=== PATIENT | male | born 1955 | race Caucasian/White ===

== ENCOUNTER 2017-04-22 12:46 | Emergency (ER) | payer OTHER ==
[~2017-04-22] VITALS: Ht 177.8 cm; Wt 65.7 kg
[2017-04-22 12:54] VITALS: BP 165/77; PULSE 113; RESP 20; TEMP 97.8; O2SAT 100
[2017-04-22 13:44] LABS: AUTOMATED NEUTROPHIL # 4.6 TH/MM3 (1.8-7.7); BASOPHIL % 0.5 % (0.0-2.0); EOSINOPHIL % 0.1 % (0.0-4.0); HEMATOCRIT 46.2 % (39.0-51.0); HEMO FLAGS DIFF FINAL; LYMPH % 18.2 % (9.0-44.0); LYMPHOCYTE # 1.2 TH/MM3 (1.0-4.8); MEAN CELL VOLUME 91.4 FL (80.0-100.0); MEAN CORPUSCULAR HEMOGLOBIN 30.3 PG (27.0-34.0); MEAN CORPUSCULAR HGB CONC 33.2 % (32.0-36.0); MONO % 7.1 % (0.0-8.0); NEUT % 74.1 % (16.0-70.0); PLATELET COUNT 381 TH/MM3 (150-450); RED BLOOD COUNT 5.05 MIL/MM3 (4.50-5.90); RED CELL DISTRIBUTION WIDTH 13.8 % (11.6-17.2); WHITE BLOOD COUNT 6.4 TH/MM3 (4.0-11.0)
[2017-04-22 13:48] LABS: POTASSIUM 3.7 MEQ/L (3.5-5.1)
[2017-04-22 13:50] LABS: BICARBONATE 19.5 MEQ/L (21.0-32.0)
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
[2017-04-22] MEDS ORDERED: MORPHINE SULFATE 8 MG/ML INJ IV PUSH ONE (14:00)
[2017-04-22] MEDS ORDERED: SODIUM CHLOR 0.9% 1000 ML INJ 1,000 ML IV ONE (14:00)
[2017-04-22 14:02] VITALS: BP 160/71; PULSE 106; RESP 16; O2SAT 100
--- NOTE | 2017-04-22 14:26 | RADRPT ---
EXAM DATE/TIME: 04/22/2017 13:31 [facility] COMPARISON: No previous studies available for comparison. INDICATIONS : Left flank pain. Evaluate for renal calculi. ORAL CONTRAST: No oral contrast ingested. RADIATION DOSE: 9.16 CTDIvol (mGy) MEDICAL HISTORY : None SURGICAL HISTORY : None. ENCOUNTER: Initial ACUITY: 2 days PAIN SCALE: 5/10 LOCATION: Left flank TECHNIQUE: Volumetric scanning of the abdomen and pelvis was performed. Using automated exposure control and ad justment of the mA and/or kV according to patient size, radiation dose was kept as low as reasonably achievable to obtain optimal diagnostic quality images. DICOM format image data is available electro nically for review and comparison. FINDINGS: LOWER LUNGS: The visualized lower lungs are clear. LIVER: Liver density is normal. There are 4 low density lesions ranging in size from 9 mm up to 2.1 cm. All of these lesions have density measurements characteristic of cysts. There is no dilation of the bili ronaldo tree. No calcified gallstones. SPLEEN: Normal size without lesion. There are multiple calcified granulomas within the spleen. PANCREAS: Within normal limits. KIDNEYS: Normal in size and shape. There is no mass, stone, or hydronephrosis. ADRENAL GLANDS: Within normal limits. VASCULAR: There is no aortic aneurysm. There is moderate atherosclerotic disease. BOWEL/MESENTERY: The stomach, small bowel, and colon demonstrate no acute abnormality. There is no free intraperitone al air or fluid. ABDOMINAL WALL: There is an ovoid subcutaneous low density lesion in the left gluteal region measuring 3.1 cm. RETROPERITONEUM: There is no lymphadenopathy. BLADDER: No wall thickening or mass. REPRODUCTIVE: Within normal limits. INGUINAL: There is no lymphadenopathy or hernia. MUSCULOSKELETAL: There are degenerative changes of the lumbar spine. CONCLUSION: 1. No renal stones are present and there are no findings to indicate urinary obstruction. 2. There is a 3.1 cm left gluteal region sebaceous cyst. 3. Nonacute findings include 4 hepatic cysts and moderate atherosclerotic disease. Mitchell Cornejo MD on April 22, 2017 at 14:19 Board Certified Radiologist. This report was verified electronically.
[2017-04-22 14:43] LABS: BLOOD, URINE SMALL (NEG); GLUCOSE,URINE NEG (NEG); NITRITE,URINE NEG (NEG)
[2017-04-22 14:49] LABS: KETONE, URINE 80 OR GREATER mg/dL (NEG); METHOD OF COLLECTION CLEAN CATCH; URINE COLOR YELLOW (YELLW/STRAW)
[2017-04-22 14:50] LABS: COMMENT (UR) CULT NOT INDICATED; CULTURE IF INDICATED CULT NOT INDICATED; RBC, URINE 0-3 /hpf (0-3); WBC, URINE 0-2 /hpf (0-5)
[2017-04-22] MEDS ORDERED: GADOBENATE DIM PF 529 MG/ML 10ML VIAL (for RAD MRI) IV ONE (16:40)
[2017-04-22 16:54] VITALS: BP 135/83; PULSE 98; RESP 16; O2SAT 99
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
[2017-04-22] MEDS ORDERED: MORPHINE SULFATE 4 MG/ML INJ IV PUSH ONE (17:45)
[2017-04-22] MEDS ORDERED: TYLE325T PO (18:12)
[2017-04-22 18:17] VITALS: BP 155/91
== END 2017-04-22 18:32 | disposition home or self-care (01) ==
LOC: PHED 12:46
DX: M54.5 Low back pain (principal); F17.210 Nicotine dependence, cigarettes, uncomplicated
CPT/HCPCS: 72158; 74176; 80048; 81001; 85025; 96361; 96374; 96376; 99285; A9577; J2270; J7030

== ENCOUNTER 2018-07-01 03:53 | Observation (INO) ==
[2018-07-01 03:59] VITALS: RESP 18
[2018-07-01] MEDS ORDERED: Sod Chloride 0.9% Inj 1,000 ML IV.SIG ONE (04:33)
[2018-07-01] MEDS ORDERED: Dicyclomine Inj 20 MG/2 ML Ampul IM ONE (04:33)
--- NOTE | 2018-07-01 04:33 | ED ---
HPI General Chief complaint: Nausea/Vomiting/Diarrhea Stated complaint: vomiting palpatations Time Seen by Provider: 07/01/18 04:28 Source: patient Mode of arrival: ambulatory Limitations: no limitations History of Present Illness HPI narrative: Patient presents with history of nausea vomiting and abdominal pain of onset at midnight. Patient has had dry heaves with abdominal pain associated with this. No change in bowel habits. Generally good health with history of hypertension. No significant symptoms other than the above. Related Data Previous Rx's Medication Instructions Recorded amlodipine [Norvasc] 5 mg PO DAILY #30 tab 07/01/18 Allergies Allergy/AdvReac Type Severity Reaction Status Date / Time No Known Allergies Allergy Unverified 07/01/18 04:06 Review of Systems ROS: all other systems reviewed are negative [facility] Medical History Medical History Patient denies medical problems (Acute) Surgical History Surgical History No history of previous surgery (Acute) Family History Family History Father History of chronic obstructive pulmonary disease Mother History of chronic obstructive pulmonary disease Social History Social History Substance History: No History of Abuse Second Hand Smoke Exposure: No Smoking Status: Current every day smoker Tobacco Type: Cigarettes How Often Do You Have a Drink Containing Alcohol: 4 or more times a week Recent Travel in [facility] within the Last 8 Weeks: No Recent Out of Country Travel within the Last 8 Weeks: No Immunization History Tetanus Immunization: Unsure Exam Narrative Exam Narrative: GENERAL: Alert and oriented with abdominal discomfort SKIN: Focused skin assessment warm/dry. HEAD: Atraumatic. Normocephalic. EYES: Pupils equal and round. No scleral icterus. No injection or drainage. ENT: No nasal bleeding or discharge. Mucous membranes pink and moist. NECK: Trachea midline. No JVD. CARDIOVASCULAR: Regular rate and rhythm. No murmur appreciated. RESPIRATORY: No accessory muscle use. Clear to auscultation. Breath sounds equal bilaterally. GASTROINTESTINAL: General abdominal tenderness with some guarding and no rigidity. Nondistended. Hepatic and splenic margins not palpable. MUSCULOSKELETAL: No obvious deformities. No clubbing. No cyanosis. No edema. Course Reevaluation(s) Reevaluation #1: Reevaluation shows patient to have generalized abdominal tenderness with good bowel sounds however increased tenderness to right lower quadrant. Tympanitic to percussion. No rebound. Lactic x2 shows no abnormality. Patient probably abdominal tenderness secondary to profuse retching prior to arrival with elevated white count. Time: 07:22 Reevaluation #2: Generally reduced tenderness to the abdomen. Patient stable for discharge. Will return if pain recurs or symptoms increase. Time: 07:41 Initial Documented Vital Signs Temperature 97.6 F 07/01/18 03:55 Pulse Rate 103 H 07/01/18 03:55 Respiratory Rate 18 07/01/18 03:55 Blood Pressure 204/91 H 07/01/18 03:55 Pulse Oximetry 96 07/01/18 03:55 Last Documented Vital Signs Temperature 97.7 F 07/01/18 15:16 Pulse Rate 76 07/01/18 15:16 Respiratory Rate 18 07/01/18 15:16 Blood Pressure 141/73 H 07/01/18 15:16 Pulse Oximetry 97 07/01/18 15:16 Critical Care Time Critical Care Time: No Medical Decision Making MDM Narrative Medical decision making narrative: Patient unable to sleep due to nausea vomiting and retching since midnight. Patient had increasing tenderness but patient still has diffuse generalized tenderness with poor localization. Patient has guarding but no rebound to palpation. Case discussed with general surgery who suggested that we need angiography. Patient admitted to Dr. Soler for further 24 hours. Medical Screen Exam Complete: Yes Emergency Medical Condition: Yes Lab Data Result diagrams: 07/01/18 13:50 07/01/18 13:50 Lab Results 07/01/18 07/01/18 07/01/18 Range/Units 04:35 04:35 04:35 CBC w Diff Auto diff final WBC 14.9 H (4.0-11.0) th/mm3 RBC 4.39 L (4.50-5.90) mil/mm3 Hgb 13.4 (13.0-17.0) gm/dL Hct 40.1 (39.0-51.0) % MCV 91.3 (80.0-100.0) fL MCH 30.6 (27.0-34.0) pg MCHC 33.5 (32.0-36.0) % RDW 14.0 (11.6-17.2) % Plt Count 374 (150-450) th/mm3 MPV 8.4 (7.0-11.0) fL Neut % (Auto) 89.6 H (16.0-70.0) % Lymph % (Auto) 5.4 L (9.0-44.0) % [place] % (Auto) 4.0 (0.0-8.0) % Eos % (Auto) 0.6 (0.0-4.0) % Baso % (Auto) 0.4 (0.0-2.0) % Neut # (Auto) 13.3 H (1.8-7.7) th/mm3 Lymph # (Auto) 0.8 L (1.0-4.8) th/mm3 [place] # (Auto) 0.6 (0.0-0.9) th/mm3 Eos # (Auto) 0.1 (0.0-0.4) th/mm3 Baso # (Auto) 0.1 (0.0-0.2) th/mm3 WBC Differential . Differential Comment . Sodium 139 (136-145) meq/L Potassium 3.9 (3.5-5.1) meq/L Chloride 101 (98-107) meq/L Carbon Dioxide 27.4 (21.0-32.0) meq/L Anion Gap 11 (5-15) meq/L BUN 31 H (7-18) mg/dL Creatinine 1.90 H (0.60-1.30) mg/dL Estimated GFR 36 L (>89) mL/min Random Glucose 102 (74-106) mg/dL Lactic Acid 1.0 (0.4-2.0) mmol/L Calcium 9.5 (8.5-10.1) mg/dL Total Bilirubin 0.2 (0.2-1.0) mg/dL AST 23 (15-37) U/L ALT 22 (12-78) U/L Alkaline Phosphatase 125 H (45-117) U/L Total Creatine Kinase (39-308) U/L Troponin I (0.02-0.05) ng/mL Total Protein 8.4 H (6.4-8.2) g/dL Albumin 4.5 (3.4-5.0) g/dL Lipase 86 (73-393) U/L Urine Color (Yellw/Straw) Urine Clarity (Clear) Urine pH (5.0-8.5) Ur Specific [place] (1.002-1.035) Urine Protein (Neg-Trace) mg/dL Urine Glucose (UA) (Negative) mg/dL Urine Ketones (Negative) mg/dL Urine Occult Blood (Negative) Urine Nitrate (Negative) Urine Bilirubin (Negative) Urine Urobilinogen (Less than 2) mg/dL Ur Leukocyte Esterase (Negative) Urine RBC (0-3) /hpf Urine WBC (0-5) /hpf Micro UA Comment Ur Microscopic Review Urine Culture Comments 07/01/18 07/01/18 07/01/18 Range/Units 06:15 06:25 08:35 CBC w Diff WBC (4.0-11.0) th/mm3 RBC (4.50-5.90) mil/mm3 Hgb (13.0-17.0) gm/dL Hct (39.0-51.0) % MCV (80.0-100.0) fL MCH (27.0-34.0) pg MCHC (32.0-36.0) % RDW (11.6-17.2) % Plt Count (150-450) th/mm3 MPV (7.0-11.0) fL Neut % (Auto) (16.0-70.0) % Lymph % (Auto) (9.0-44.0) % [place] % (Auto) (0.0-8.0) % Eos % (Auto) (0.0-4.0) % Baso % (Auto) (0.0-2.0) % Neut # (Auto) (1.8-7.7) th/mm3 Lymph # (Auto) (1.0-4.8) th/mm3 [place] # (Auto) (0.0-0.9) th/mm3 Eos # (Auto) (0.0-0.4) th/mm3 Baso # (Auto) (0.0-0.2) th/mm3 WBC Differential Differential Comment Sodium (136-145) meq/L Potassium (3.5-5.1) meq/L Chloride (98-107) meq/L Carbon Dioxide (21.0-32.0) meq/L Anion Gap (5-15) meq/L BUN (7-18) mg/dL Creatinine (0.60-1.30) mg/dL Estimated GFR (>89) mL/min Random Glucose (74-106) mg/dL Lactic Acid 0.7 (0.4-2.0) mmol/L Calcium (8.5-10.1) mg/dL Total Bilirubin (0.2-1.0) mg/dL AST (15-37) U/L ALT (12-78) U/L Alkaline Phosphatase (45-117) U/L Total Creatine Kinase 198 (39-308) U/L Troponin I Less than 0.02 L (0.02-0.05) ng/mL Total Protein (6.4-8.2) g/dL Albumin (3.4-5.0) g/dL Lipase (73-393) U/L Urine Color Yellow (Yellw/Straw) Urine Clarity Clear (Clear) Urine pH 6.0 (5.0-8.5) Ur Specific [place] 1.025 (1.002-1.035) Urine Protein Trace (Neg-Trace) mg/dL Urine Glucose (UA) 100 H (Negative) mg/dL Urine Ketones Trace H (Negative) mg/dL Urine Occult Blood Trace (Negative) Urine Nitrate Negative (Negative) Urine Bilirubin Negative (Negative) Urine Urobilinogen 0.2 (Less than 2) mg/dL Ur Leukocyte Esterase Negative (Negative) Urine RBC 0-3 (0-3) /hpf Urine WBC 0-5 (0-5) /hpf Micro UA Comment Culture not ind Ur Microscopic Review Microscopic reviewed Urine Culture Comments Culture not ind 07/01/18 07/01/18 07/01/18 Range/Units 13:50 13:50 13:50 CBC w Diff Auto diff final WBC 9.2 (4.0-11.0) th/mm3 RBC 3.98 L (4.50-5.90) mil/mm3 Hgb 12.1 L (13.0-17.0) gm/dL Hct 36.3 L (39.0-51.0) % MCV 91.0 (80.0-100.0) fL MCH 30.3 (27.0-34.0) pg MCHC 33.3 (32.0-36.0) % RDW 13.6 (11.6-17.2) % Plt Count 273 (150-450) th/mm3 MPV 8.8 (7.0-11.0) fL Neut % (Auto) 87.3 H (16.0-70.0) % Lymph % (Auto) 7.3 L (9.0-44.0) % [place] % (Auto) 4.0 (0.0-8.0) % Eos % (Auto) 0.1 (0.0-4.0) % Baso % (Auto) 1.3 (0.0-2.0) % Neut # (Auto) 8.0 H (1.8-7.7) th/mm3 Lymph # (Auto) 0.7 L (1.0-4.8) th/mm3 [place] # (Auto) 0.4 (0.0-0.9) th/mm3 Eos # (Auto) 0.0 (0.0-0.4) th/mm3 Baso # (Auto) 0.1 (0.0-0.2) th/mm3 WBC Differential . Differential Comment . Sodium 137 (136-145) meq/L Potassium 4.4 (3.5-5.1) meq/L Chloride 103 (98-107) meq/L Carbon Dioxide 23.1 (21.0-32.0) meq/L Anion Gap 11 (5-15) meq/L BUN 27 H (7-18) mg/dL Creatinine 1.60 H (0.60-1.30) mg/dL Estimated GFR 44 L (>89) mL/min Random Glucose 114 H (74-106) mg/dL Lactic Acid (0.4-2.0) mmol/L Calcium 8.6 D (8.5-10.1) mg/dL Total Bilirubin (0.2-1.0) mg/dL AST (15-37) U/L ALT (12-78) U/L Alkaline Phosphatase (45-117) U/L Total Creatine Kinase 289 (39-308) U/L Troponin I Less than 0.02 L (0.02-0.05) ng/mL Total Protein (6.4-8.2) g/dL Albumin (3.4-5.0) g/dL Lipase (73-393) U/L Urine Color (Yellw/Straw) Urine Clarity (Clear) Urine pH (5.0-8.5) Ur Specific [place] (1.002-1.035) Urine Protein (Neg-Trace) mg/dL Urine Glucose (UA) (Negative) mg/dL Urine Ketones (Negative) mg/dL Urine Occult Blood (Negative) Urine Nitrate (Negative) Urine Bilirubin (Negative) Urine Urobilinogen (Less than 2) mg/dL Ur Leukocyte Esterase (Negative) Urine RBC (0-3) /hpf Urine WBC (0-5) /hpf Micro UA Comment Ur Microscopic Review Urine Culture Comments Imaging Data Radiologist's impression: Abdomen/Pelvis CT 07/01/18 04:33 CONCLUSION: 1. No acute finding is identified within the abdomen or pelvis on this noncontrast examination. 2. Stable chronic findings including moderate to severe atherosclerotic disease and left gluteal subcutaneous cystic lesion. Discharge Plan Discharge Disposition Patient Disposition: 30 Still Patient Discharge Condition Condition: Stable Discharge Order Discharge Orders: Discharge Order (Routine); Ordered 07/01/18 Ordered By: Eber Viramontes Discharge Details Anticipated Discharge Date: 07/01/18 Diagnosis: Abdominal pain Physicians Team ED Provider: Ralph Ramos Primary Care Provider: Primary Care Genesis Sanford Attending Provider: Rogers Moraes Status ED Status: Left Department Discharge Information Discharge Date/Time: 07/01/18 09:42
[2018-07-01 04:52] LABS: Baso # (Auto) 0.1 th/mm3 (0.0-0.2); Baso % (Auto) 0.4 % (0.0-2.0); Eos # (Auto) 0.1 th/mm3 (0.0-0.4); Eos % (Auto) 0.6 % (0.0-4.0); Hematocrit 40.1 % (39.0-51.0); Hemoglobin 13.4 gm/dL (13.0-17.0); Lymph # (Auto) 0.8 th/mm3 (1.0-4.8); Lymph % (Auto) 5.4 % (9.0-44.0); Mean Corpuscular HGB Conc 33.5 % (32.0-36.0); Mean Corpuscular Hemoglobin 30.6 pg (27.0-34.0); Mean Corpuscular Volume 91.3 fL (80.0-100.0); Mean Platelet Volume 8.4 fL (7.0-11.0); Mono # (Auto) 0.6 th/mm3 (0.0-0.9); Neut # (Auto) 13.3 th/mm3 (1.8-7.7); Neut % (Auto) 89.6 % (16.0-70.0); Platelet Count 374 th/mm3 (150-450); Red Blood Count 4.39 mil/mm3 (4.50-5.90); White Blood Count 14.9 th/mm3 (4.0-11.0)
[2018-07-01 05:02] LABS: Chloride 101 meq/L (98-107); Potassium 3.9 meq/L (3.5-5.1); Sodium 139 meq/L (136-145)
[2018-07-01 05:05] LABS: Glucose,Random 102 mg/dL (74-106)
[2018-07-01 05:06] LABS: Albumin 4.5 g/dL (3.4-5.0); Anion Gap 11 meq/L (5-15); Blood Urea Nitrogen 31 mg/dL (7-18); Calcium 9.5 mg/dL (8.5-10.1); Carbon Dioxide 27.4 meq/L (21.0-32.0); Lipase 86 U/L (73-393)
--- NOTE | 2018-07-01 05:07 | CT ---
EXAM DATE: 07/01/2018 4:51 AM EDT AGE/SEX: 62 years / Male INDICATIONS: Nausea. Vomiting. CLINICAL DATA: This is the patient's initial encounter. Patient reports that signs and symptoms have been present for 1 day and indicates a pain score of 0/10. MEDICAL/SURGICAL HISTORY: None. None. RADIATION DOSE: 7.87 CTDI (mGy) COMPARISON: [facility], CT ABDOMEN & PELVIS W/O CONTRAST, 04/22/2017. . TECHNIQUE: Multiple contiguous axial images were obtained through the abdomen. Images were obtained using multiple row detector helical technique. Using automated exposure control and adjustment of the mA and/or kV according to patient size, radiation dose was kept as low as reasonably achievable to o btain optimal diagnostic quality images. DICOM format image data is available electronically for rev iew and comparison. FINDINGS: Lower chest: No acute abnormality is identified. Hepatobiliary: No concerning focal liver lesion is identified. There are 4 low-density lesions in the liver measuring up to 1.5 cm. These are stable and have features characteristic of cysts. No calcifi ed gallstones are present. Kidneys: No hydronephrosis, stone, or mass. Adrenal Glands: Within normal limits. Spleen: Within normal limits. There are multiple punctate calcifications. Pancreas: Within normal limits. Vascular: The aorta is nonaneurysmal. There is moderate to severe atherosclerotic disease. Bowel/Mesentery: A small hiatal hernia is present. The small bowel demonstrates no significant abnorm ality. No colon abnormality is identified. There are no findings to indicate bowel obstruction. No fr ee air or free fluid is visualized. Abdominal Wall: No hernia is visualized. Retroperitoneum: No lymphadenopathy. Bladder: No wall thickening or mass. Reproductive: Within normal limits. Inguinal: No lymphadenopathy or hernia. Musculoskeletal: No acute osseous abnormality is identified. There is thoracolumbar scoliosis with mu ltilevel degenerative disc disease. Stable subcutaneous cystic lesion in the left gluteal region elaine uring up to 3.2 cm. CONCLUSION: 1. No acute finding is identified within the abdomen or pelvis on this noncontrast examination. 2. Stable chronic findings including moderate to severe atherosclerotic disease and left gluteal sub cutaneous cystic lesion. Electronically signed by: Mitchell Cornejo MD 07/01/2018 5:05 AM EDT
[2018-07-01 05:09] LABS: Alanine Aminotransferase 22 U/L (12-78); Aspartate Aminotransferase 23 U/L (15-37); Glomerular Filtration Rate 36 mL/min (>89)
[2018-07-01 05:11] LABS: Total Protein 8.4 g/dL (6.4-8.2)
[2018-07-01 05:12] LABS: Alkaline Phosphatase 125 U/L (45-117)
[2018-07-01 06:31] LABS: Bilirubin,Urine Negative (Negative); Clarity,Urine Clear (Clear); Color,Urine Yellow (Yellw/Straw); Glucose,Urine (UA) 100 mg/dL (Negative); Leukocyte Esterase,Urine Negative (Negative); Nitrite,Urine Negative (Negative); Specific Gravity,Urine 1.025 (1.002-1.035); Urobilinogen,Urine 0.2 mg/dL (Less than 2)
[2018-07-01 06:37] LABS: RBC,Urine 0-3 /hpf (0-3); WBC,Urine 0-5 /hpf (0-5)
[2018-07-01] MEDS ORDERED: Diatrizoate Meglum/Diatrizoate Sod Liq 9 ML UDC PO ONE (07:26)
[2018-07-01] MEDS ORDERED: Sod Chloride 0.9% Inj 1,000 ML IV.CONT SCH (08:15)
[2018-07-01] MEDS ORDERED: Bisacodyl 10 MG Supp RECTAL PRN (08:15)
[2018-07-01] MEDS ORDERED: Temazepam 15 MG Capsule PO PRN (08:15)
[2018-07-01] MEDS ORDERED: Acetaminophen 325 MG Tablet PO PRN (08:15)
[2018-07-01] MEDS ORDERED: Sod Chloride 0.9% Inj 1,000 ML IV.SIG SCH (08:15)
[2018-07-01 09:00] LABS: Creatine Kinase 198 U/L (39-308)
[2018-07-01] MEDS ORDERED: Senna/Docusate Sodium 8.6/50 MG Tablet PO SCH (09:00)
[2018-07-01 14:17] LABS: Baso # (Auto) 0.1 th/mm3 (0.0-0.2); Baso % (Auto) 1.3 % (0.0-2.0); Eos % (Auto) 0.1 % (0.0-4.0); Hematocrit 36.3 % (39.0-51.0); Hemoglobin 12.1 gm/dL (13.0-17.0); Lymph # (Auto) 0.7 th/mm3 (1.0-4.8); Lymph % (Auto) 7.3 % (9.0-44.0); Mean Corpuscular HGB Conc 33.3 % (32.0-36.0); Mean Corpuscular Hemoglobin 30.3 pg (27.0-34.0); Mean Platelet Volume 8.8 fL (7.0-11.0); Mono # (Auto) 0.4 th/mm3 (0.0-0.9); Neut % (Auto) 87.3 % (16.0-70.0); Platelet Count 273 th/mm3 (150-450); Red Blood Count 3.98 mil/mm3 (4.50-5.90); Red Cell Distribution Width 13.6 % (11.6-17.2); White Blood Count 9.2 th/mm3 (4.0-11.0)
[2018-07-01 14:24] LABS: Potassium 4.4 meq/L (3.5-5.1)
[2018-07-01 14:35] LABS: Creatine Kinase 289 U/L (39-308)
[2018-07-01 14:39] LABS: Calcium 8.6 mg/dL (8.5-10.1); Carbon Dioxide 23.1 meq/L (21.0-32.0)
[2018-07-01 15:17] VITALS: BP 141/73; PULSE 76; TEMP 97.7; O2SAT 97
--- NOTE | 2018-07-01 15:20 | ECG ---
Date Performed: 07/01/2018 Time Performed: 13:57:51 PTAGE: 62 years EKG: Sinus rhythm NORMAL ECG NO PREVIOUS TRACING DOCTOR: Eulogio Hurd Interpretating Date/Time 07/01/2018 15:19:50
--- NOTE | 2018-07-01 15:29 | P.HP ---
History of Present Illness Primary Care Physician: No Primary Care Physician Chief Complaint: Nausea, vomiting, elevated blood pressure History of Present Illness: 62-year-old male with no chronic medical illnesses who presented to the hospital because of elevated blood pressure. Patient states that he is in normal state of health until last evening when he was cooking dinner. Patient states that he did not eat anything throughout the whole day and he started making dinner and got nauseous, dizziness and had an episode of vomiting. Patient denies any ingestion of any mayonnaise product, food product, meat, seafood. He states that after he vomited he felt really dizzy so he took a blood pressure was 220/110. Because of that reason he came to emergency department for evaluation. Upon presentation emergency department he had a blood pressure 204/91. His blood pressure had continued to improve throughout his stay in the hospital. Patient had complete workup in the emergency department to find to have some hemoconcentration, dehydration, CT of the abdomen did not indicate any abnormality. Lactic acid level is normal. It was recommended by her physician that the patient be observed in the hospital for further evaluation and management. Upon evaluating the patient he is resting comfortably in bed and wants to go home. He was deferring any further evaluations to include MRA of the abdomen. Patient states that he felt much better. He is hungry and wants to eat. Patient denies any previous history of hypertension, denies any chest pain, shortness of breath, dyspnea, diaphoresis. Patient denies any presenting abdominal pain, hematemesis, constipation, diarrhea, hematochezia, melena. Review of Systems All other systems reviewed negative except as stated in HPI Gastrointestinal: Reports nausea, Reports vomiting Neurologic: Reports dizziness PMFSH - History History Provided By: Patient - Medical History Medical History: Medical History (Last Reviewed 07/01/18 @ 04:30 by Ralph Ramos MD) Patient denies medical problems - Surgical History Surgical History: Surgical History (Last Reviewed 07/01/18 @ 04:30 by Ralph Ramos MD) No history of previous surgery - Family History Family History: Family History (Last Updated 07/01/18 @ 13:22 by REJI Mcconnell) Father History of chronic obstructive pulmonary disease Mother History of chronic obstructive pulmonary disease - Tobacco History Second Hand Smoke Exposure: No Tobacco Use In Past 30 Days: Yes Smoking Status: Current every day smoker Tobacco Type: Cigarettes - Alcohol History How Often Do You Have a Drink Containing Alcohol: 4 or more times a week - Substance Use History Substance History: No History of Abuse - Travel History Recent Travel in the [place] Within the Last 8 Weeks: No Recent Travel Out of the Country Within the Last 8 Weeks: No - Immunization History Tetanus Immunization: Unsure Medications and Allergies Active Medications: Active Medications Acetaminophen (Tylenol) 650 mg PO Q4H PRN PRN Reason: Temp > 100.4 Al Hydroxide/Mg Hydroxide (Milk Of Magnesia Liq) 30 ml PO Q12H PRN PRN Reason: Mild Constipation Bisacodyl (Dulcolax Supp) 10 mg RECTAL DAILY PRN PRN Reason: SEVERE CONSITIPATION Clonidine HCl (Catapres) 0.1 mg PO Q6H PRN PRN Reason: SBP>200, DBP>100 Enalaprilat (Vasotec Inj) 1.25 mg IV.PUSH Q6H PRN PRN Reason: SBP>180, DBP>100, HR>65 Sodium Chloride (Ns Inj) 1,000 mls @ 0 mls/hr IV.SIG BOLUS [facility] Last Infusion: 07/01/18 10:03 Dose: Infused Sodium Chloride (Ns Inj) 1,000 mls @ 100 mls/hr IV.CONT .Q10H [facility] Last Admin: 07/01/18 09:08 Dose: 100 mls/hr Lactulose (Lactulose Liq) 30 ml PO DAILY PRN PRN Reason: SEVERE CONSITIPATION Ondansetron HCl (Zofran Inj) 4 mg IV.PUSH Q6H PRN PRN Reason: NAUSEA OR VOMITING Senna/Docusate Sodium (Ericka-Colace) 1 tab PO BID [facility] Last Admin: 07/01/18 10:03 Dose: Not Given Sennosides (Senokot) 17.2 mg PO Q12H PRN PRN Reason: Moderate Constipation Sodium Chloride (Ns Flush) 2 ml IV.FLUSH PRN PRN PRN Reason: FLUSH AFTER USING IV ACCESS Sodium Chloride (Ns Flush) 2 ml IV.FLUSH PRN PRN PRN Reason: FLUSH AFTER USING IV ACCESS Temazepam (Restoril) 15 mg PO HS PRN PRN Reason: INSOMNIA Allergies Allergy/AdvReac Type Severity Reaction Status Date / Time No Known Allergies Allergy Unverified 07/01/18 04:06 Exam Vital signs: Vital Signs 07/01/18 03:55 07/01/18 05:17 07/01/18 06:33 Temperature 97.6 F Pulse Rate 103 H 96 H 101 H Respiratory Rate 18 18 18 Blood Pressure 204/91 H 171/84 H 179/88 H Pulse Oximetry 96 97 97 07/01/18 07:14 07/01/18 09:00 07/01/18 10:11 Temperature 98.2 F 99.5 F Pulse Rate 101 H 97 H 65 Respiratory Rate 18 18 Blood Pressure 158/95 H 154/84 H 159/80 H Pulse Oximetry 97 98 07/01/18 12:00 07/01/18 15:16 Temperature 98.9 F 97.7 F Pulse Rate 77 76 Respiratory Rate 18 18 Blood Pressure 142/77 H 141/73 H Pulse Oximetry 95 97 Intake & Output 06/30/18 07/01/18 07/01/18 18:59 06:59 18:59 Intake Total 1000 / 1000 1000 / 1000 Balance 1000 / 1000 1000 / 1000 Weight 62.3 kg 63.5 kg Intake: IV 1000 / 1000 1000 / 1000 NS Inj 1,000 ML @ Wide Open IV. 1000 / 1000 1000 / 1000 SIG BOLUS THONY Rx#:[id number] Other: Weight On Admission 63.5 kg Narrative: GENERAL: Well-developed, well-nourished, in no acute distress. alert and orientated HEENT: Head is normocephalic without any lesions or masses noted. Facial features are symmetric. Eyes: Pupils equal round reactive to light. Extraocular muscles are intact. Conjunctivae were clear. Oropharyngeal: Pharynx without any erythema edema. Tongue is midline without deviation. Buccal mucosa is moist without any masses or lesions NECK: Supple without any masses. Trachea midline no deviation. No JVD, no bruits are appreciated CARDIAC: Regular rhythm, regular rate. S1/S2 are heard. No murmurs gallops or rubs. LUNGS: Clear to auscultation bilaterally. No wheeze, rhonchi or rales. No use of accessory muscles on inspiration or expiration. ABDOMEN: Soft, nontender. Nondistended. Bowel sounds heard in all 4 quadrants. No organomegaly or masses. Negative rebound, negative guarding EXTREMITIES: No edema, pulses are equal bilaterally. No cyanosis or clubbing NEUROLOGY: Mood and affect appear appropriate. Cranial nerves II through XII grossly intact. Muscle strength 5/5 in upper and lower extremities bilaterally. Deep tendon reflexes are 2+ in upper and lower extremities bilaterally. Results - Labs CBC & Chem 7: 07/01/18 13:50 07/01/18 13:50 Labs: Laboratory Results - last 24 hr 07/01/18 07/01/18 07/01/18 04:35 04:35 04:35 CBC w Diff Auto diff final WBC 14.9 H RBC 4.39 L Hgb 13.4 Hct 40.1 MCV 91.3 MCH 30.6 MCHC 33.5 RDW 14.0 Plt Count 374 MPV 8.4 Neut % (Auto) 89.6 H Lymph % (Auto) 5.4 L [place] % (Auto) 4.0 Eos % (Auto) 0.6 Baso % (Auto) 0.4 Neut # (Auto) 13.3 H Lymph # (Auto) 0.8 L [place] # (Auto) 0.6 Eos # (Auto) 0.1 Baso # (Auto) 0.1 WBC Differential . Differential Comment . Sodium 139 Potassium 3.9 Chloride 101 Carbon Dioxide 27.4 Anion Gap 11 BUN 31 H Creatinine 1.90 H Estimated GFR 36 L Random Glucose 102 Lactic Acid 1.0 Calcium 9.5 Total Bilirubin 0.2 AST 23 ALT 22 Alkaline Phosphatase 125 H Total Creatine Kinase Troponin I Total Protein 8.4 H Albumin 4.5 Lipase 86 Urine Color Urine Clarity Urine pH Ur Specific [place] Urine Protein Urine Glucose (UA) Urine Ketones Urine Occult Blood Urine Nitrate Urine Bilirubin Urine Urobilinogen Ur Leukocyte Esterase Urine RBC Urine WBC Micro UA Comment Ur Microscopic Review Urine Culture Comments 07/01/18 07/01/18 07/01/18 06:15 06:25 08:35 CBC w Diff WBC RBC Hgb Hct MCV MCH MCHC RDW Plt Count MPV Neut % (Auto) Lymph % (Auto) [place] % (Auto) Eos % (Auto) Baso % (Auto) Neut # (Auto) Lymph # (Auto) [place] # (Auto) Eos # (Auto) Baso # (Auto) WBC Differential Differential Comment Sodium Potassium Chloride Carbon Dioxide Anion Gap BUN Creatinine Estimated GFR Random Glucose Lactic Acid 0.7 Calcium Total Bilirubin AST ALT Alkaline Phosphatase Total Creatine Kinase 198 Troponin I Less than 0.02 L Total Protein Albumin Lipase Urine Color Yellow Urine Clarity Clear Urine pH 6.0 Ur Specific [place] 1.025 Urine Protein Trace Urine Glucose (UA) 100 H Urine Ketones Trace H Urine Occult Blood Trace Urine Nitrate Negative Urine Bilirubin Negative Urine Urobilinogen 0.2 Ur Leukocyte Esterase Negative Urine RBC 0-3 Urine WBC 0-5 Micro UA Comment Culture not ind Ur Microscopic Review Microscopic reviewed Urine Culture Comments Culture not ind 07/01/18 07/01/18 07/01/18 13:50 13:50 13:50 CBC w Diff Auto diff final WBC 9.2 RBC 3.98 L Hgb 12.1 L Hct 36.3 L MCV 91.0 MCH 30.3 MCHC 33.3 RDW 13.6 Plt Count 273 MPV 8.8 Neut % (Auto) 87.3 H Lymph % (Auto) 7.3 L [place] % (Auto) 4.0 Eos % (Auto) 0.1 Baso % (Auto) 1.3 Neut # (Auto) 8.0 H Lymph # (Auto) 0.7 L [place] # (Auto) 0.4 Eos # (Auto) 0.0 Baso # (Auto) 0.1 WBC Differential . Differential Comment . Sodium 137 Potassium 4.4 Chloride 103 Carbon Dioxide 23.1 Anion Gap 11 BUN 27 H Creatinine 1.60 H Estimated GFR 44 L Random Glucose 114 H Lactic Acid Calcium 8.6 D Total Bilirubin AST ALT Alkaline Phosphatase Total Creatine Kinase 289 Troponin I Less than 0.02 L Total Protein Albumin Lipase Urine Color Urine Clarity Urine pH Ur Specific [place] Urine Protein Urine Glucose (UA) Urine Ketones Urine Occult Blood Urine Nitrate Urine Bilirubin Urine Urobilinogen Ur Leukocyte Esterase Urine RBC Urine WBC Micro UA Comment Ur Microscopic Review Urine Culture Comments - Imaging Impressions Abdomen/Pelvis CT 07/01/18 04:33 CONCLUSION: 1. No acute finding is identified within the abdomen or pelvis on this noncontrast examination. 2. Stable chronic findings including moderate to severe atherosclerotic disease and left gluteal subcutaneous cystic lesion. Caprini VTE Risk Assessment Caprini VTE Risk Assessment: No/Low Risk (score <= 1) Caprini Risk Assessment Model: Point Value = 1 Point Value = 2 Point Value = 3 Point Value = 5 Age 41-60 Minor surgery BMI > 25 kg/m2 Swollen legs Varicose veins or History of unexplained or recurrent spontaneous Oral contraceptives or hormone replacement Sepsis (< 1 month) Serious lung disease, including pneumonia (< 1 month) Abnormal pulmonary function Acute myocardial infarction Congestive heart failure (< 1 month) History of inflammatory bowel disease Medical patient at bed rest Age 61-74 Arthroscopic surgery Major open surgery (> 45 min) Laparoscopic surgery (> 45 min) Malignancy Confined to bed (> 72 hours) Immobilizing plaster cast Central venous access Age >= 75 History of VTE Family history of VTE Factor V Leiden Prothrombin [id number] Lupus anticoagulant Anticardiolipin antibodies Elevated serum homocysteine Heparin-induced thrombocytopenia Other congenital or acquired thrombophilia Stroke (< 1 month) Elective arthroplasty Hip, pelvis, or leg fracture Acute spinal cord injury (< 1 month) Prophylaxis Regimen: Total Risk Factor Score Risk Level Prophylaxis Regimen 0-1 Low Early ambulation 2 Moderate Order ONE of the following: *Sequential Compression Device (SCD) *Heparin 5000 units SQ BID 3-4 Higher Order ONE of the following medications: *Heparin 5000 units SQ TID *Enoxaparin/Lovenox 40 mg SQ daily (WT < 150 kg, CrCl > 30 mL/min) *Enoxaparin/Lovenox 30 mg SQ daily (WT < 150 kg, CrCl > 10-29 mL/min) *Enoxaparin/Lovenox 30 mg SQ BID (WT < 150 kg, CrCl > 30 mL/min) AND/OR *Sequential Compression Device (SCD) 5 or more Highest Order ONE of the following medications: *Heparin 5000 units SQ TID (Preferred with Epidurals) *Enoxaparin/Lovenox 40 mg SQ daily (WT < 150 kg, CrCl > 30 mL/min) *Enoxaparin/Lovenox 30 mg SQ daily (WT < 150 kg, CrCl > 10-29 mL/min) *Enoxaparin/Lovenox 30 mg SQ BID (WT < 150 kg, CrCl > 30 mL/min) AND *Sequential Compression Device (SCD) Assessment and Plan - Plan Nausea and vomiting, resolved -CT scan of the abdomen did not indicate any acute abnormality that would constitute his presenting symptoms -Laboratory studies does show signs of mild dehydration -Continue IV hydration -Follow-up laboratory studies show improvement of signs of dehydration -We will advance diet, patient has tolerated diet without any abnormality Elevated blood pressure -Patient does not have any history of hypertension. Could be reactive to nausea and vomiting. -Blood pressure improved during his stay in the hospital without any treatment -Patient needs a follow-up with a prior medical doctor for continued evaluation -We will start low-dose Norvasc DVT prevention -Low risk, early ambulation Discharge Planning: Discharge home in stable condition Activity: Ad cullen. Diet: Regular diet Medication per medication reconciliation Follow-up with primary medical doctor in 1 week
== END 2018-07-01 16:27 | disposition home or self-care (01) ==
LOC: PHED 03:53 → PHEDA 03:53 → PH3 09:33
PROVIDERS: ADMIT Hospitalist; ATTEND Hospitalist